=== PATIENT | male | born 1990 | race Two or more races ===

== ENCOUNTER 2025-07-08 10:06 | Emergency (ER) | payer OTHER ==
[~2025-07-08] VITALS: Ht 175.3 cm; Wt 72.6 kg
[2025-07-08 10:42] VITALS: BP 110/70; TEMP 98.5; O2SAT 99
== END 2025-07-08 10:30 | disposition home or self-care (01) ==
LOC: ER 10:19
DX: R06.02 Shortness of breath (principal)